=== PATIENT | female | born 1975 | race African-American/Black ===

== ENCOUNTER 2020-04-03 09:11 | Outpatient (CLI) | payer OTHER, SELFPAY ==
--- NOTE | ~2020-04-03 | MM_ITS ---
EXAMINATION: MM screening [facility] BI w pérez HISTORY: Screening mammogram TECHNIQUE: Craniocaudal and mediolateral oblique 3-D tomosynthesis images were obtained and synthetic 2-D images were generated. CAD analysis was submitted and interpreted. COMPARISON: 04/02/2019, 03/29/2018, 02/21/2017 BREAST PARENCHYMAL COMPOSITION: There are scattered areas of fibroglandular density. FINDINGS: There is no evidence of suspicious mass, calcification, or architectural distortion to sugg est malignancy in either breast. There has been no suspicious interval change. IMPRESSION: 1. No mammographic evidence of malignancy. 2. Recommend routine screening mammography in one year. BI-RADS Category 1: Negative Reviewed, dictated and finalized at location A. LOCATOR
== END 2020-04-03 09:12 | disposition home or self-care (01) ==
LOC: ANHIMG 09:13
PROVIDERS: PCP Family Medicine; Visit Provider Family Medicine
DX: Z12.31 Encounter for screening mammogram for malignant neoplasm of breast (principal)
CPT/HCPCS: 77063; 77067

== ENCOUNTER 2020-08-26 13:28 | Outpatient (CLI) | payer OTHER, SELFPAY | END 2020-08-26 13:29 | disposition home or self-care (01) | LOC: ANHCOVIDVC 13:29 | PROVIDERS: PCP Family Medicine | DX: Z23 Encounter for immunization (principal) | CPT/HCPCS: 0001A; 91300 ==

== ENCOUNTER 2020-09-16 13:23 | Outpatient (CLI) | payer OTHER, SELFPAY | END 2020-09-16 13:24 | disposition home or self-care (01) | LOC: ANHCOVIDVC 13:23 | PROVIDERS: PCP Family Medicine | DX: Z23 Encounter for immunization (principal) | CPT/HCPCS: 0002A; 91300 ==

== ENCOUNTER → 2020-12-04 12:39 | Outpatient (CLI) | payer OTHER, SELFPAY ==
--- NOTE | ~2020-12-04 | XR_ITS ---
XR wrist RT min 3V DATE: 12/04/2020 12:59 INDICATION: Medial wrist pain following occupational therapy 2 weeks ago TECHNIQUE: 4 views COMPARISON: None FINDINGS: No fracture or dislocation, periosteal reaction or bone destruction. No erosive change or c hondrocalcinosis. IMPRESSION: No significant abnormality Reviewed, dictated and finalized at location A. IMPRESSION: No significant abnormality
== END ==
PROVIDERS: PCP Family Medicine
DX: M25.531 Pain in right wrist (principal)
CPT/HCPCS: 73110

== ENCOUNTER → 2021-04-03 13:27 | Outpatient (CLI) | payer OTHER, SELFPAY ==
--- NOTE | ~2021-04-03 | XR_ITS ---
EXAMINATION: XR hip BI 2V w AP pelvis EXAM DATE: 04/03/2021 14:45 INDICATION: Chronic bilateral hip pain. TECHNIQUE: Each hip imaged independently (separate right and also left hip) crosstable lateral and ' frog-leg' and frontal projections for interpretation. Frontal projection pelvis. There is no prior study for comparison. FINDINGS: No radiographic evidence of hip avascular necrosis. Mild symmetric bilateral hip primary osteoarthritis. Calcifications in the pelvis are believed to be phleboliths. There are no osteoblasti c or osteolytic lesions identified. There are no acute fractures identified. No radiopaque foreign bel dies identified. IMPRESSION: Mild symmetric bilateral hip osteoarthritis. Reviewed, dictated and finalized at location A. C IRON WORKER
--- NOTE | ~2021-04-03 | XR_ITS ---
EXAMINATION: XR lumbar spine 2-3V EXAM DATE: 04/03/2021 14:45 INDICATION: Chronic low back pain x 3 months . TECHNIQUE: Lumber spine frontal, lateral, lateral L5-S1 projections for interpretation. There is no prior study for comparison. FINDINGS: Mild abdominal aortic arteriosclerosis. Mild upper and mid lumbar disc disease. Mild lumba r facet arthropathy. No spondylolysis. No lumbar scoliosis. Sacrum, sacroiliac joints, sacral arcuate lines are intact. Paraspinal soft tissue is unremarkable. IMPRESSION: Mild lumbar spondylosis. Reviewed, dictated and finalized at location A. BUILDER IMPRESSION: Mild lumbar spondylosis.
--- NOTE | ~2021-04-03 | XR_ITS ---
EXAMINATION: XR knee LT min 4V EXAM DATE: 04/03/2021 14:45 INDICATION: Left knee pain, chronic. No recent injury reported. TECHNIQUE: Left knee lateral, frontal AP, frontal PA tunnel, sunrise projections. There is no prior study for comparison. FINDINGS: No evidence osteochondral defect or joint body in the left knee joint. There is minimal l eft knee primary osteoarthritis. There are no acute fractures or dislocations identified. There is n o subcutaneous gas. The soft tissue is unremarkable. There are no radiopaque foreign bodies. No j oint effusion. IMPRESSION: Minimal left knee osteoarthritis. Reviewed, dictated and finalized at location A. NED SYRUP OPERATOR
--- NOTE | ~2021-04-03 | XR_ITS ---
EXAMINATION: XR knee RT min 4V EXAM DATE: 04/03/2021 14:45 INDICATION: Chronic right knee pain. TECHNIQUE: Right knee lateral, frontal AP, frontal PA tunnel, sunrise projections. Correlation is mad e to contralateral knee same date. FINDINGS: No evidence osteochondral defect or joint body in the right knee joint. There is minimal right knee primary osteoarthritis. There are no acute fractures or dislocations identified. There is no subcutaneous gas. The soft tissue is unremarkable. There are no radiopaque foreign bodies. No joint effusion. IMPRESSION: Minimal right knee osteoarthritis. Reviewed, dictated and finalized at location A. REPAIR TECHNICIAN
== END ==
PROVIDERS: PCP Family Medicine
DX: G89.29 Other chronic pain (principal); M17.0 Bilateral primary osteoarthritis of knee; M16.0 Bilateral primary osteoarthritis of hip; M47.896 Other spondylosis, lumbar region
CPT/HCPCS: 72100; 73521; 73564

== ENCOUNTER → 2021-11-22 13:55 | Outpatient (CLI) | payer OTHER, SELFPAY ==
--- NOTE | ~2021-11-22 | XR_ITS ---
XR knee LT min 4V DATE: 11/22/2021 14:32 INDICATION: Fall. Left knee pain TECHNIQUE: 4 views including crosstable lateral COMPARISON: 04/03/2021 left knee FINDINGS: There is slight periarticular spurring of the patella consistent with osteoarthritis. There is moderate loss of medial compartment joint space height. No fracture or dislocation or joint effusion. No radiopaque intra-articular loose body or, calcinosis . No periosteal reaction or bone destruction. IMPRESSION: Mild osteoarthritis at patellofemoral and medial compartments Reviewed, dictated and finalized at location A.
== END ==
PROVIDERS: PCP Physician Assistant; Visit Provider Physician Assistant
DX: M17.12 Unilateral primary osteoarthritis, left knee (principal)
CPT/HCPCS: 73564

== ENCOUNTER 2022-01-11 08:10 | Outpatient (CLI) | payer OTHER, SELFPAY ==
--- NOTE | ~2022-01-11 | MM_ITS ---
EXAMINATION: MM screening [facility] BI w pérez HISTORY: Screening mammogram TECHNIQUE: Craniocaudal and mediolateral oblique 3-D tomosynthesis images were obtained and synthetic 2-D images were generated. CAD analysis was submitted and interpreted. COMPARISON: 04/03/2020, 04/02/2019, 03/29/2018 BREAST PARENCHYMAL COMPOSITION: There are scattered areas of fibroglandular density. FINDINGS: There is no suspicious mass, calcification, or architectural distortion to suggest malignan cy in either breast. There has been no suspicious interval change. IMPRESSION: 1. No mammographic evidence of malignancy. 2. Recommend routine screening mammography in one year. BI-RADS Category 1: Negative Reviewed, dictated and finalized at location A.
== END 2022-01-11 08:11 | disposition home or self-care (01) ==
PROVIDERS: PCP Physician Assistant; Visit Provider Physician Assistant
DX: Z12.31 Encounter for screening mammogram for malignant neoplasm of breast (principal)
CPT/HCPCS: 77063; 77067

== ENCOUNTER 2022-04-01 11:18 | Outpatient (CLI) | payer OTHER, SELFPAY ==
--- NOTE | ~2022-04-01 | MMUS_ITS ---
EXAMINATION: MM diagnostic [facility] LT w pérez, US breast LT limited HISTORY: Nipple discharge. Mastitis. TECHNIQUE: Additional 3-D tomosynthesis images of the left breast were performed and synthetic 2-D im ages were generated. CAD analysis was submitted and interpreted. High resolution Limited left breast ultrasound was performed. COMPARISON: Comparison to multiple prior studies sequentially, with oldest reviewed study dated 07/28. BREAST PARENCHYMAL COMPOSITION: Breast composed of scattered areas of fibroglandular density FINDINGS: MAMMOGRAPHIC FINDINGS: There is focal asymmetry in the lower aspect of the left breast, best seen on ML and MLO views locate d inferiorly on medial lateral view. No suspicious calcifications or architectural distortion. ULTRASOUND: Limited left breast ultrasound: At 2:00, 2 cm from the nipple, there is an oval hypoechoic mass with circumscribed margins, posterior acoustic enhancement, parallel orientation and no internal vasculari ty measuring 5 mm maximum dimension. At 3:00, 5 cm from the nipple, there are multiple cysts, largest measuring 5 mm. At 3:00, 3 cm from the nipple, there is a complicated cyst measuring 5 mm with low-l evel internal echoes. At 4:00, 1 cm from the nipple, there is a hypoechoic mass with echogenic hilum measuring 7 x 5 x 3 mm, likely benign intramammary lymph node. IMPRESSION: 1. Probable benign right breast masses. 2. Recommend 6 month follow-up diagnostic right mammogram and ultrasound BI-RADS category 3, probably benign findings. Reviewed, dictated and finalized at location A. WATCHMAN IMPRESSION: 1. Probable benign right breast masses. 2. Recommend 6 month follow-up diagnostic right mammogram and ultrasound BI-RADS category 3, probably benign findings.
== END 2022-04-01 11:19 | disposition home or self-care (01) ==
LOC: ANHIMG 11:20
PROVIDERS: PCP Physician Assistant; Visit Provider Physician Assistant
DX: N64.52 Nipple discharge (principal); R92.8 Other abnormal and inconclusive findings on diagnostic imaging of breast
CPT/HCPCS: 76642; 77061; 77065; G0279

== ENCOUNTER 2022-10-10 00:15 | Inpatient (IN) | payer MEDICARE, OTHER, SELFPAY ==
[2022-10-10] VITALS (30 sets, daily range): BP systolic 69–137; BP diastolic 59–95; PULSE 81–100; RESP 12–33; TEMP 36.3–37; O2SAT 89–98; BMI 37.1
--- NOTE | 2022-10-10 | ECHO_ITS ---
Patient Info Name: Raysa Welch Minor Age: 47 years : 1975 Gender: Female Ht: 70 in Wt: 259 lbs BSA: 2.46 m2 HR: 79 bpm Technical Quality: Good Exam Date: 10/10/2022 10:45 AM Exam Location: [facility] Pulmonary Patient Status: Inpatient Admit Date: 10/10/2022 Staff Ordering Physician: Eduin Zamora MD Electric Mule Driver: Yohana Ramon RDCS Attending Provider: Keisha Li DO Referring Physician: Noah MERRILL; Exam Type: CA echo doppler color flow Study Info Indications I50.30 - Unspecified diastolic (congestive) heart failure Complete two-dimensional, color flow and Doppler transthoracic echocardiogram is performed. Summary 1. Complete two-dimensional, color flow and Doppler transthoracic echocardiogram is performed. 2. Left ventricular chamber dimension is normal. 3. Left ventricular systolic function is normal, estimated at 60-65%. 4. The left ventricular diastolic function is grade I diastolic dysfunction. 5. E/e' 10 is mildly elevated. 6. No pulmonary hypertension, estimated pulmonary arterial systolic pressure is 9 mmHg. Left Ventricle E/e' 10 is mildly elevated. Left ventricular chamber dimension is normal. Left ventricular systolic function is normal, estimated at 60-65%. The left ventricular diastolic function is grade I diastolic dysfunction. Right Ventricle Right ventricular systolic function is normal and with normal TAPSE 1.9 cm. Right ventricular chamber dimension is normal. Left Atria Left atrial chamber dimension is normal. Right Atria Right atrial chamber dimension is normal. Aortic Valve The aortic valve is trileaflet. There is no aortic valve stenosis. There is no aortic valve regurgitation. Pulmonic Valve There is no pulmonic regurgitation. Mitral Valve There is no mitral valve stenosis. There is no mitral valve regurgitation. Tricuspid Valve There is no tricuspid valve regurgitation. No pulmonary hypertension, estimated pulmonary arterial systolic pressure is 9 mmHg. Pericardium/Pleural There is no pericardial effusion. Inferior Vena Cava Normal inferior vena cava with >50% collapse upon inspiration consistent with normal right atrial pressure, 5 mmHg. Aorta The aortic root size at the sinus of Valsalva is normal. Left Ventricular Outflow Tract Name Value Normal LVOT Doppler LVOT Peak Gradient 5 mmHg LVOT Mean Gradient 3 mmHg LVOT VTI 25 cm LVOT VTI/AV VTI Ratio 1.0 Pulmonic Valve Name Value Normal PV Doppler PV Peak Gradient 5 mmHg Mitral Valve Name Value Normal MV Doppler MV Decel [place] 362 cm/s2 MV PHT 65 ms MV Area (PHT) 3.4 cm2 4.0-5.0
--- NOTE | ~2022-10-10 | XR_ITS ---
EXAMINATION: XR chest 2V DATE: 10/10/2022 01:19 INDICATION: Cough and shortness of breath. TECHNIQUE: Frontal and lateral views of the chest were obtained. COMPARISON: None. FINDINGS: There is a diffuse interstitial pattern in the lungs. No pleural effusion or pneumothorax. The heart size is normal. IMPRESSION: 1. Diffuse interstitial pattern in the lungs, consistent with pulmonary edema versus pneumonia. Reviewed, dictated and finalized at location A. IMPRESSION: 1. Diffuse interstitial pattern in the lungs, consistent with pulmonary edema v ersus pneumonia.
--- NOTE | 2022-10-10 00:40 | ED.GENADULT ---
HPI - General Adult General Chief complaint: Shortness of Breath/Dyspnea Stated complaint: tight cough feels sob Time Seen by Provider: 10/10/22 00:26 History of Present Illness HPI narrative: 35-kwtb-plv-year-old female presented to the emergency department for evaluation of cough and congestion has been ongoing for the last week. Patient denies any previous history of PE DVT or COPD. Patient states she is a smoker. Related Data Home Medications Medication Instructions Recorded Confirmed amlodipine 10 mg tablet 10 mg PO DAILY 10/10/22 10/10/22 atorvastatin 10 mg tablet 20 mg PO HS 10/10/22 10/10/22 erenumab-aooe 70 mg/mL 70 mg subcut MONTHLY 10/10/22 10/10/22 subcutaneous auto-injector (Aimovig Autoinjector) ergocalciferol (vitamin D2) 1,250 1,250 mcg PO WEEKLY 10/10/22 10/10/22 mcg (50,000 unit) capsule gabapentin 300 mg capsule 300 mg PO BID 10/10/22 10/10/22 hydroxyzine HCl 50 mg tablet 50 mg PO TID 10/10/22 10/10/22 losartan 100 mg tablet 100 mg PO DAILY 10/10/22 10/10/22 meloxicam 15 mg tablet 15 mg PO DAILY 10/10/22 10/10/22 propranolol 20 mg tablet 20 mg PO TID 10/10/22 10/10/22 sertraline 100 mg tablet 150 mg PO DAILY 10/10/22 10/10/22 trazodone 150 mg tablet 150 mg PO HS 10/10/22 10/10/22 Allergies Allergy/AdvReac Type Severity Reaction Status Date / Time No Known Allergies Allergy Verified 10/10/22 05:16 Review of Systems Review of Systems: All systems reviewed & are unremarkable except as noted in HPI and below PMFSH Social History Social History Smoking packs per day: 0.2 Smoking cigarettes per day: 4.0 Smoking status: Current every day smoker Tobacco type: cigarettes Second hand tobacco smoke exposure: Yes Smoking end date: 05/15/94 Alcohol intake: former Drinks per week: 70 Substance use: never Lack of Transportation: No Lack of Food: Never True Current Housing: I Have Housing Concerned About Future Housing: No Difficulty Paying Gas/Electric Bills: No Difficulty Paying for Meds: No Currently Unemployed: No Education: High School Diploma/GED Difficulty w/ Childcare or Family Care: No Spiritual care concerns: No Exam Narrative: APPEARANCE: Well appearing, no pain, no distress, well-nourished. HEAD: normocephalic, atraumatic. EYES: PERRLA/EOMI, conjunctivae clear. NOSE: Normal no drainage NECK: Supple. No adenopathy, no masses. RESPIRATORY: Wheeze bilaterally CARDIOVASCULAR: Regular rate and rhythm without murmurs rubs or gallops. ABDOMINAL: Soft, nontender, nondistended, normal bowel sounds MUSCULOSKELETAL: Moves all extremities. Strength/ROM intact, No edema, No calf tenderness. NEURO: Alert. Cranial nerves II through XII intact. Grossly intact SKIN: Warm, dry. Normal Color Course Course Emergency Course: 47-year-old female presenting to the ED for evaluation of productive cough and shortness of breath. Patient was hypoxic when ambulating back to the room patient's oxygenation did improve on 2 L of oxygen by nasal cannula. Chest x-ray was concerning for pneumonia. Patient did have a leukocytosis of 15. Patient was started on IV antibiotics in the emergency department. Case was discussed with the hospitalist and patient was accepted for observation. Patient was updated on the diagnosis, treatment plan and plan for admission. All questions and concerns were addressed. Vital Signs Vital signs: Vital Signs Temperature 97.9 F 10/10/22 00:29 Pulse Rate 90 10/10/22 00:29 Respiratory Rate 22 H 10/10/22 00:29 Blood Pressure 137/75 10/10/22 00:29 Pulse Oximetry 95 10/10/22 00:29 Oxygen Delivery Nasal Cannula 10/10/22 00:29 Oxygen Flow Rate 2 10/10/22 00:29 Temperature 98.5 F 10/10/22 05:15 Pulse Rate 82 10/10/22 05:15 Respiratory Rate 20 10/10/22 05:15 Blood Pressure 118/72 10/10/22 05:15 Pulse Oximetry 94 10/10/22 06:45 Oxygen Delivery Nasal Cannula 10/10/22 06:45 Oxygen Flow Rate 2 0
[2022-10-10] MEDS: LEVALBUTEROL NEB 1.25 MG/3 ML 2.5 MG INHALATION (00:47)
[2022-10-10 01:43] LABS: Influenza A QL RT-PCR Negative (Negative); Influenza B QL RT-PCR Negative (Negative); RSV RNA, RT-PCR Negative (Negative); SARS-CoV-2 RNA PCR Negative (Negative)
[2022-10-10] MEDS: AZITHROMYCIN 500 MG/NS 250 ML 500 MG/250 ML BAG 250 MG IVPB (03:02)
[2022-10-10 03:14] LABS: Alanine Aminotransferase 27 U/L (6-35); Albumin Level 3.7 g/dL (3.5-5.1); Alkaline Phosphatase 94 U/L (38-126); Anion Gap 6 mmol/L (8-16); Aspartate Amino Transferase 38 U/L (14-36); Bilirubin,Total 0.7 mg/dL (0.2-1.3); Blood Urea Nitrogen 14 mg/dL (7-17); Calcium 8.9 mg/dL (8.4-10.2); Carbon Dioxide 32 mmol/L (22-30); Chloride 98 mmol/L (98-107); Estimated CRCL calculation 96 ml/min; Estimated Glomerular Filt Rate > 60; Glucose 129 mg/dL (65-110); Potassium 3.2 mmol/L (3.4-5.0); Sodium 136 mmol/L (137-145)
[2022-10-10 03:22] LABS: Basophils Absolute Auto 0.1 K/mm3 (0.0-0.1); Basophils Percent Auto 0.6 % (0.2-1.2); Eosinophils Absolute Auto 0.3 K/mm3 (0-0.3); Eosinophils Percent Auto 1.8 % (0-4.4); Hematocrit 39.8 % (37.0-47.0); Hemoglobin 13.5 g/dL (12.0-15.0); Immature Granulocyte Absolute 0.27 K/mm3 (0.00-0.031); Immature Granulocyte Percent A 1.8 % (0-0.5); Lymphocytes Absolute Auto 3.41 K/mm3 (0.9-3.2); Lymphocytes Percent Auto 22.8 % (18.3-44.2); Mean Corpuscular HGB Conc 33.9 g/dl (32-36); Mean Corpuscular Hemoglobin 30.9 pg (26-34); Mean Corpuscular Volume 91.1 fl (80-100); Mean Platelet Volume 10.5 fl (7.4-10.4); Monocytes Absolute Auto 1.1 K/mm3 (0.1-0.6); Monocytes Percent Auto 7.3 % (2.6-8.5); Neutrophils Absolute Auto 9.8 K/mm3 (1.3-6.7); Neutrophils Percent Auto 65.7 % (45.5-73.1); Platelet Count Result 328 k/mm3 (150-375); Red Blood Count 4.37 M/mm3 (4.2-5.4); Red Cell Distribution Width 12.6 % (11.5-14.5)
[2022-10-10] MEDS: POTASSIUM CHLORIDE 20 MEQ PACKET (FOR LIQUID) 40 MEQ PO (03:36)
--- NOTE | 2022-10-10 04:24 | ECG_ITS ---
Measurements Intervals [place] Rate: 89 P: 8 [place]: 159 QRS: 27 QRSD: 85 T: 39 QT: 386 QTc: 471 Interpretive Statements SINUS RHYTHM NONSPECIFIC T-WAVE ABNORMALITY- ANTERIOR LEADS BORDERLINE ECG NO PREVIOUS ECG AVAILABLE FOR COMPARISON Electronically Signed On 10-10-2022 21:13:50 CDT by Deyvi Alonzo D.O.
--- NOTE | 2022-10-10 05:14 | PC.NURSE ---
Patient arrived on 3 Med-Surg at 05:10
[2022-10-10] MEDS: LEVALBUTEROL NEB 1.25 MG/3 ML 0.63 MG INHALATION ×3 (07:20→19:47)
[2022-10-10 08:56] LABS: Magnesium 2.4 mg/dL (1.6-2.3)
[2022-10-10 09:05] LABS: NT Pro B Type Natriuretic Pept 110 pg/mL (19.9-100)
[2022-10-10] MEDS: FUROSEMIDE INJ 40 MG/4 ML VIAL IV PUSH (09:43)
--- NOTE | 2022-10-10 11:33 | PM.IMHP ---
H&P: HPI History of Present Illness Date/Time: 10/10/22 11:33 Chief Complaint: Cough and shortness of breath Narrative: 51-pkxa-stk-year-old female who is a current smoker who presented to the emergency department for evaluation of cough and congestion ongoing for the last week.? Patient also reports some chills but no fever, no chest pain, no abdominal pain no change in bladder or bowel habits. Patient denies any previous history of PE DVT or COPD.? Chest x-ray was reported as interstitial infiltrates versus pulmonary edema Review of Systems Review of Systems: All systems reviewed & are unremarkable except as noted in HPI and below PMFSH Social History Social History Smoking packs per day: 0.2 Smoking cigarettes per day: 4.0 Smoking status: Current every day smoker Tobacco type: cigarettes Second hand tobacco smoke exposure: Yes Smoking end date: 05/15/94 Alcohol intake: former Drinks per week: 70 Substance use: never Lack of Transportation: No Lack of Food: Never True Current Housing: I Have Housing Concerned About Future Housing: No Difficulty Paying Gas/Electric Bills: No Difficulty Paying for Meds: No Currently Unemployed: No Education: High School Diploma/GED Difficulty w/ Childcare or Family Care: No Spiritual care concerns: No Meds Home Medications and Allergies Home Medications Medication Instructions Recorded Confirmed Type amlodipine 10 mg tablet 10 mg PO DAILY 10/10/22 10/10/22 History atorvastatin 10 mg tablet 20 mg PO HS 10/10/22 10/10/22 History erenumab-aooe 70 mg/mL 70 mg subcut MONTHLY 10/10/22 10/10/22 History subcutaneous auto-injector (Aimovig Autoinjector) ergocalciferol (vitamin D2) 1,250 1,250 mcg PO WEEKLY 10/10/22 10/10/22 History mcg (50,000 unit) capsule gabapentin 300 mg capsule 300 mg PO BID 10/10/22 10/10/22 History hydroxyzine HCl 50 mg tablet 50 mg PO TID 10/10/22 10/10/22 History losartan 100 mg tablet 100 mg PO DAILY 10/10/22 10/10/22 History meloxicam 15 mg tablet 15 mg PO DAILY 10/10/22 10/10/22 History propranolol 20 mg tablet 20 mg PO TID 10/10/22 10/10/22 History sertraline 100 mg tablet 150 mg PO DAILY 10/10/22 10/10/22 History trazodone 150 mg tablet 150 mg PO HS 10/10/22 10/10/22 History Allergies Allergy/AdvReac Type Severity Reaction Status Date / Time No Known Allergies Allergy Verified 10/10/22 05:16 Vital Signs Vital Signs - 24 hr 10/10/22 00:29 10/10/22 00:29 10/10/22 00:46 Temperature 97.9 F Pulse Rate 90 Respiratory Rate 22 H Blood Pressure 137/75 Pulse Oximetry 95 89 L 97 Oxygen Delivery Nasal Cannula Room Air Nasal Cannula Oxygen Flow Rate 2 2 10/10/22 00:48 10/10/22 01:01 10/10/22 02:11 Temperature Pulse Rate 84 83 Respiratory Rate 12 33 H Blood Pressure 69/59 L 123/95 H Pulse Oximetry Oxygen Delivery Oxygen Flow Rate 10/10/22 02:51 10/10/22 03:00 10/10/22 03:02 Temperature Pulse Rate 88 81 84 Respiratory Rate 25 H 23 H 29 H Blood Pressure 130/79 Pulse Oximetry 94 94 93 Oxygen Delivery Oxygen Flow Rate 10/10/22 03:15 10/10/22 03:30 10/10/22 03:32 Temperature Pulse Rate 85 85 84 Respiratory Rate 28 H 24 H 27 H Blood Pressure 126/77 Pulse Oximetry 93 95 94 Oxygen Delivery Oxygen Flow Rate 10/10/22 03:45 10/10/22 04:00 10/10/22 04:01 Temperature Pulse Rate 87 85 85 Respiratory Rate 29 H 25 H 24 H Blood Pressure 125/93 H Pulse Oximetry 93 95 94 Oxygen Delivery Oxygen Flow Rate 10/10/22 04:15 10/10/22 04:31 10/10/22 05:15 Temperature 98.5 F Pulse Rate 93 91 82 Respiratory Rate 22 H 23 H 20 Blood Pressure 118/75 118/72 Pulse Oximetry 92 94 94 Oxygen Delivery Oxygen Flow Rate 10/10/22 06:45 10/10/22 07:20 10/10/22 07:20 Temperature Pulse Rate 83 83 Respiratory Rate 18 18 Blood Pressure Pulse Oximetry 94 95 Oxygen Deli
[2022-10-10] MEDS: hydrOXYzine HCL 25 MG TABLET 50 MG PO ×2 (12:55→17:58)
[2022-10-10] MEDS: traZODone HCL 50 MG TABLET 150 MG PO (21:07)
[2022-10-10] MEDS: ATORVASTATIN 10 MG TABLET 20 MG PO (21:07)
[2022-10-11] VITALS (11 sets, daily range): BP systolic 108–136; BP diastolic 73–85; PULSE 85–111; RESP 18–20; TEMP 36–36.9; O2SAT 92–98
[2022-10-11] MEDS: LEVALBUTEROL NEB 1.25 MG/3 ML 0.63 MG INHALATION ×4 (01:09→20:05)
[2022-10-11] MEDS: AZITHROMYCIN 500 MG/NS 250 ML 500 MG/250 ML BAG 250 MG IVPB (03:28)
[2022-10-11] MEDS: amLODIPine BESYLATE 5 MG TABLET 10 MG PO (09:35)
[2022-10-11] MEDS: hydrOXYzine HCL 25 MG TABLET 50 MG PO ×3 (09:35→17:32)
[2022-10-11] MEDS: FUROSEMIDE 20 MG TABLET PO (09:35)
[2022-10-11] MEDS: LOSARTAN POTASSIUM 100 MG TABLET PO (09:35)
[2022-10-11] MEDS: SERTRALINE HCL 50 MG TABLET 150 MG PO (09:35)
--- NOTE | 2022-10-11 10:55 | PM.IMPN ---
Progress Note: A&P Assessment and Plan (1) Pneumonia: Code(s): J18.9 - Pneumonia, unspecified organism Status: Acute Assessment and Plan: Continue IV Rocephin azithromycin. Blood cultures growing Gram-positive cocci in clusters (2) Hypoxia: Code(s): R09.02 - Hypoxemia Status: Acute Assessment and Plan: Likely secondary to pneumonia versus mild pulmonary edema. Echo shows grade 1 diastolic dysfunction. Continue Lasix 20 mg p.o. daily (3) Bacteremia: Code(s): R78.81 - Bacteremia Status: Acute Assessment and Plan: Blood cultures growing Gram-positive cocci in clusters. Sensitivity and ID pending. Continue current antibiotics (4) HTN (hypertension): Code(s): I10 - Essential (primary) hypertension Status: Acute Assessment and Plan: Continue home medications Subjective Date/time seen: 10/11/22 10:55 Interval history: Doing better Review of Systems Review of Systems: All systems reviewed & are unremarkable except as noted in HPI and below Exam Narrative: APPEARANCE: Well appearing, no pain, no distress, well-nourished. HEAD: normocephalic, atraumatic. EYES: PERRLA/EOMI, conjunctivae clear. NOSE: Normal no drainage NECK: Supple. No adenopathy, no masses. RESPIRATORY: Wheeze and crackles bilaterally CARDIOVASCULAR: Regular rate and rhythm without murmurs rubs or gallops. ABDOMINAL: Soft, nontender, nondistended, normal bowel sounds MUSCULOSKELETAL: Moves all extremities. Strength/ROM intact, No edema, No calf tenderness. NEURO: Alert. Cranial nerves II through XII intact. Grossly intact SKIN: Warm, dry. Normal Color Objective Data Vital Signs Vital Signs: Vital Signs - 24 hr 10/10/22 13:05 10/10/22 13:15 10/10/22 14:00 Temperature 97.3 F L Pulse Rate 87 86 94 Respiratory Rate 18 18 14 Blood Pressure 108/77 Pulse Oximetry 94 Oxygen Delivery Oxygen Flow Rate 10/10/22 17:55 10/10/22 17:57 10/10/22 18:41 Temperature Pulse Rate Respiratory Rate Blood Pressure Pulse Oximetry 98 94 92 Oxygen Delivery Nasal Cannula Room Air Room Air Oxygen Flow Rate 1 10/10/22 19:47 10/10/22 19:48 10/10/22 20:00 Temperature Pulse Rate 81 84 Respiratory Rate 18 18 Blood Pressure Pulse Oximetry 93 Oxygen Delivery Room Air Oxygen Flow Rate 10/10/22 21:30 10/11/22 01:10 10/11/22 01:24 Temperature 98.6 F Pulse Rate 100 85 88 Respiratory Rate 18 18 18 Blood Pressure 123/95 H Pulse Oximetry 95 Oxygen Delivery Oxygen Flow Rate 10/11/22 06:00 10/11/22 07:00 10/11/22 07:00 Temperature 98.5 F Pulse Rate 99 86 86 Respiratory Rate 18 18 18 Blood Pressure 136/85 Pulse Oximetry 95 92 Oxygen Delivery Room Air Oxygen Flow Rate 10/11/22 07:09 10/11/22 07:30 Temperature Pulse Rate 85 Respiratory Rate 18 Blood Pressure Pulse Oximetry Oxygen Delivery Room Air Oxygen Flow Rate Intake/Output Intake/Output: Intake & Output 10/08/22 10/09/22 10/10/22 10/11/22 23:59 23:59 23:59 23:59 Intake Total 2059 670 / 670 Balance 2059 670 / 670 Meds/Results Medications: Active Medications Generic Name Dose Route Start Last Admin Trade Name Freq PRN Reason Stop Dose Admin Amlodipine Besylate 10 mg 10/11/22 09:00 10/11/22 09:35 Amlodipine Besylate 5 Mg Tablet PO 10 mg DAILY PASQUALE Administration Atorvastatin Calcium 20 mg 10/10/22 21:00 10/10/22 21:07 Atorvastatin 10 Mg Tablet PO 20 mg HS PASQUALE Administration Furosemide 20 mg 10/11/22 09:00 10/11/22 09:35 Furosemide 20 Mg Tablet PO 20 mg DAILY PASQUALE Administration Hydroxyzine HCl 50 mg 10/10/22 13:00 10/11/22 09:35 Hydroxyzine Hcl 25 Mg Tablet PO 50 mg TID PASQUALE Administration Ceftriaxone Sodium 1 gm in 50 mls @ 100 mls/hr 10/10/22 23:00 10/10/22 23:50 Rocephin 1 Gm/Ns 50 Ml IVPB 100 mls/hr Q24H PASQUALE Administration Azithrom
[2022-10-11] MEDS: traZODone HCL 50 MG TABLET 150 MG PO (20:48)
[2022-10-11] MEDS: ATORVASTATIN 10 MG TABLET 20 MG PO (20:48)
[2022-10-12] VITALS (13 sets, daily range): BP systolic 112–131; BP diastolic 67–80; PULSE 92–104; RESP 16–24; TEMP 35.8–36.6; O2SAT 94–97
[2022-10-12] MEDS: LEVALBUTEROL NEB 1.25 MG/3 ML 0.63 MG INHALATION ×4 (02:04→19:54)
[2022-10-12] MEDS: AZITHROMYCIN 500 MG/NS 250 ML 500 MG/250 ML BAG 250 MG IVPB (03:20)
[2022-10-12 08:29] LABS: Anion Gap 3 mmol/L (8-16); Blood Urea Nitrogen 9 mg/dL (7-17); Calcium 8.8 mg/dL (8.4-10.2); Carbon Dioxide 35 mmol/L (22-30); Chloride 100 mmol/L (98-107); Estimated CRCL calculation 134 ml/min; Estimated Glomerular Filt Rate > 60; Glucose 109 mg/dL (65-110); Potassium 3.5 mmol/L (3.4-5.0); Sodium 138 mmol/L (137-145)
[2022-10-12] MEDS: SERTRALINE HCL 50 MG TABLET 150 MG PO (09:01)
[2022-10-12] MEDS: LOSARTAN POTASSIUM 100 MG TABLET PO (09:01)
[2022-10-12] MEDS: amLODIPine BESYLATE 5 MG TABLET 10 MG PO (09:02)
[2022-10-12] MEDS: FUROSEMIDE 20 MG TABLET PO (09:02)
[2022-10-12] MEDS: VANCOMYCIN 1,250 MG/NS 250 ML 1,250 MG/250 ML BAG 166.67 MG IVPB ×2 (09:02→10:32)
[2022-10-12] MEDS: hydrOXYzine HCL 25 MG TABLET 50 MG PO ×3 (09:04→17:49)
--- NOTE | 2022-10-12 11:32 | PM.IMPN ---
Progress Note: A&P Assessment and Plan (1) Pneumonia: Code(s): J18.9 - Pneumonia, unspecified organism Status: Acute Assessment and Plan: Continue IV Rocephin azithromycin. Blood cultures growing Gram-positive cocci in clusters (2) Hypoxia: Code(s): R09.02 - Hypoxemia Status: Acute Assessment and Plan: Likely secondary to pneumonia versus mild pulmonary edema. Echo shows grade 1 diastolic dysfunction. Continue Lasix 20 mg p.o. daily (3) Bacteremia: Code(s): R78.81 - Bacteremia Status: Acute Assessment and Plan: Blood cultures growing Gram-positive cocci in clusters. Sensitivity and ID pending. Continue current antibiotics (4) HTN (hypertension): Code(s): I10 - Essential (primary) hypertension Status: Acute Assessment and Plan: Continue home medications Subjective Date/time seen: 10/12/22 11:32 Interval history: no New complaints Exam Narrative: APPEARANCE: Well appearing, no pain, no distress, well-nourished. HEAD: normocephalic, atraumatic. EYES: PERRLA/EOMI, conjunctivae clear. NOSE: Normal no drainage NECK: Supple. No adenopathy, no masses. RESPIRATORY: Wheeze and crackles bilaterally CARDIOVASCULAR: Regular rate and rhythm without murmurs rubs or gallops. ABDOMINAL: Soft, nontender, nondistended, normal bowel sounds MUSCULOSKELETAL: Moves all extremities. Strength/ROM intact, No edema, No calf tenderness. NEURO: Alert. Cranial nerves II through XII intact. Grossly intact SKIN: Warm, dry. Normal Color Objective Data Vital Signs Vital Signs: Vital Signs - 24 hr 10/11/22 13:00 10/11/22 13:10 10/11/22 15:35 Temperature 97.8 F Pulse Rate 103 H 90 105 H Respiratory Rate 18 18 20 Blood Pressure 108/73 Pulse Oximetry 98 Oxygen Delivery 10/11/22 20:00 10/11/22 20:00 10/11/22 20:08 Temperature Pulse Rate 110 H 110 H 111 H Respiratory Rate 18 18 Blood Pressure Pulse Oximetry 96 Oxygen Delivery Room Air 10/11/22 21:33 10/12/22 02:00 10/12/22 02:09 Temperature 96.8 F L Pulse Rate 97 104 H 98 Respiratory Rate 20 18 18 Blood Pressure 116/76 Pulse Oximetry 94 Oxygen Delivery 10/12/22 06:00 10/12/22 07:53 10/12/22 07:54 Temperature 96.4 F L Pulse Rate 97 93 Respiratory Rate 16 18 Blood Pressure 131/67 Pulse Oximetry 95 94 Oxygen Delivery Room Air 10/12/22 07:59 10/12/22 08:00 Temperature Pulse Rate 97 Respiratory Rate 18 Blood Pressure Pulse Oximetry Oxygen Delivery Room Air Intake/Output Intake/Output: Intake & Output 10/09/22 10/10/22 10/11/22 10/12/22 23:59 23:59 23:59 23:59 Intake Total 2060 1206 230 Balance 2060 1206 230 Meds/Results Medications: Active Medications Generic Name Dose Route Start Last Admin Trade Name Freq PRN Reason Stop Dose Admin Amlodipine Besylate 10 mg 10/11/22 09:00 10/12/22 09:02 Amlodipine Besylate 5 Mg Tablet PO 10 mg DAILY PASQUALE Administration Atorvastatin Calcium 20 mg 10/10/22 21:00 10/11/22 20:48 Atorvastatin 10 Mg Tablet PO 20 mg HS PASQUALE Administration Furosemide 20 mg 10/11/22 09:00 10/12/22 09:02 Furosemide 20 Mg Tablet PO 20 mg DAILY PASQUALE Administration Hydroxyzine HCl 50 mg 10/10/22 13:00 10/12/22 09:04 Hydroxyzine Hcl 25 Mg Tablet PO 50 mg TID PASQUALE Administration Ceftriaxone Sodium 1 gm in 50 mls @ 100 mls/hr 10/10/22 23:00 10/12/22 00:04 Rocephin 1 Gm/Ns 50 Ml IVPB Infused Q24H PASQUALE Infusion Azithromycin 500 mg in 250 mls @ 250 mls/hr 10/11/22 03:00 10/12/22 03:20 Zithromax IVPB 250 mls/hr Q24H PASQUALE Administration Vancomycin HCl 1,500 mg in 500 mls @ 250 mls/hr 10/12/22 21:00 Vancomycin 1,500 Mg/D5w 500 Ml IVPB Q12H PASQUALE Vancomycin HCl 1,250 mg in 250 mls @ 166.667 mls/hr 10/12/22 10:30 10/12/22 10:32 Vancomycin 1,250 Mg/Ns 250 Ml IVPB 10/12/22 11:59 166.67 mls/hr ONCE ONE Administration Levalbu
[2022-10-12] MEDS: traZODone HCL 50 MG TABLET 150 MG PO (20:07)
[2022-10-12] MEDS: ATORVASTATIN 10 MG TABLET 20 MG PO (20:07)
[2022-10-12] MEDS: AMOXICILLIN/CLAVULANATE K 875-125 MG TAB 1 TABLET PO (20:07)
[2022-10-13 02:13] VITALS: PULSE 92; RESP 18
[2022-10-13] MEDS: LEVALBUTEROL NEB 1.25 MG/3 ML 0.63 MG INHALATION ×2 (02:13→08:13)
[2022-10-13 06:00] VITALS: BP 136/90; PULSE 96; RESP 16; TEMP 35.5; O2SAT 96
[2022-10-13 08:00] VITALS: PULSE 104; RESP 18; O2SAT 95
[2022-10-13 08:14] VITALS: PULSE 98; RESP 18; O2SAT 95
[2022-10-13 08:24] VITALS: PULSE 104; RESP 18
[2022-10-13] MEDS: LOSARTAN POTASSIUM 100 MG TABLET PO (09:30)
[2022-10-13] MEDS: FUROSEMIDE 20 MG TABLET PO (09:30)
[2022-10-13] MEDS: SERTRALINE HCL 50 MG TABLET 150 MG PO (09:30)
[2022-10-13] MEDS: amLODIPine BESYLATE 5 MG TABLET 10 MG PO (09:30)
[2022-10-13] MEDS: AMOXICILLIN/CLAVULANATE K 875-125 MG TAB 1 TABLET PO (09:30)
[2022-10-13] MEDS: hydrOXYzine HCL 25 MG TABLET 50 MG PO (09:32)
--- NOTE | 2022-10-13 11:24 | PM.DS ---
DS: Admitting Diagnosis Discharge Date October 13, 2022 Admitting Diagnosis Pneumonia DS: Discharge Diagnosis Discharge Diagnosis (1) Pneumonia: Code(s): J18.9 - Pneumonia, unspecified organism Status: Acute Assessment and Plan: Continue IV Rocephin azithromycin. Blood cultures growing Gram-positive cocci in clusters (2) Hypoxia: Code(s): R09.02 - Hypoxemia Status: Acute Assessment and Plan: Likely secondary to pneumonia versus mild pulmonary edema. Echo shows grade 1 diastolic dysfunction. Continue Lasix 20 mg p.o. daily (3) Bacteremia: Code(s): R78.81 - Bacteremia Status: Acute Assessment and Plan: Blood cultures growing Gram-positive cocci in clusters. Sensitivity and ID pending. Continue current antibiotics (4) HTN (hypertension): Code(s): I10 - Essential (primary) hypertension Status: Acute Assessment and Plan: Continue home medications DS: Summary Hospital Course Hospital Course: Admitted for pneumonia will be discharged on antibiotics. Respiratory status is at baseline. Time Spent with Patient Time attestation: Total time spent providing and/or coordinating discharge services: Exam Narrative: APPEARANCE: Well appearing, no pain, no distress, well-nourished. HEAD: normocephalic, atraumatic. EYES: PERRLA/EOMI, conjunctivae clear. NOSE: Normal no drainage NECK: Supple. No adenopathy, no masses. RESPIRATORY: Wheeze and crackles bilaterally CARDIOVASCULAR: Regular rate and rhythm without murmurs rubs or gallops. ABDOMINAL: Soft, nontender, nondistended, normal bowel sounds MUSCULOSKELETAL: Moves all extremities. Strength/ROM intact, No edema, No calf tenderness. NEURO: Alert. Cranial nerves II through XII intact. Grossly intact SKIN: Warm, dry. Normal Color DS: Data Data Completed and Pending Labs on day of discharge: Preliminary micro results at discharge 10/10/22 04:41 Blood Culture - Preliminary Blood Discharge Plan Discharge Attending physician on discharge: Jeff Monterroso Discharging Clinician: Jeff Monterroso Patient Disposition: Home, Self-Care Activity: as tolerated Diet: as tolerated Patient Instructions: Antibiotic Form, How to Stop Smoking (DC), Community Acquired Pneumonia (DC) Stand Alone Forms: General Discharge Information Follow-up/Referrals: Major,KADEEM Winchester [Primary Care Provider] - Discharge Medications: New azithromycin [Zithromax] 250 mg Tablet 500 mg PO Q24H 3 Days Qty: 6 0RF Continued atorvastatin 10 mg tablet 20 mg PO HS meloxicam 15 mg tablet 15 mg PO DAILY sertraline 100 mg tablet 150 mg PO DAILY hydroxyzine HCl 50 mg tablet 50 mg PO TID amlodipine 10 mg tablet 10 mg PO DAILY trazodone 150 mg tablet 150 mg PO HS gabapentin 300 mg capsule 300 mg PO BID ergocalciferol (vitamin D2) 1,250 mcg (50,000 unit) capsule 1,250 mcg PO WEEKLY propranolol 20 mg tablet 20 mg PO TID losartan 100 mg tablet 100 mg PO DAILY Aimovig Autoinjector 70 mg/mL auto-injector 70 mg SUBCUT MONTHLY Date of admission: 10/11/22 10:09 Primary Care Provider: Lenore*Annabella Admitting Provider: Keisha Li Attending physician on admission: Keisha Li Condition: Stable
== END 2022-10-13 12:24 | disposition home or self-care (01) | DRG 194 ==
LOC: ANHED 04:34 → ANH3MEDSUR 04:40
PROVIDERS: Hospitalist; Admitting Provider Internal Medicine; Emergency Provider Emergency Medicine; PCP Physician Assistant; Visit Provider Chiropractor
DX: J18.9 Pneumonia, unspecified organism (principal); R78.81 Bacteremia; R09.02 Hypoxemia; I10 Essential (primary) hypertension; F17.210 Nicotine dependence, cigarettes, uncomplicated; Z79.899 Other long term (current) drug therapy; Z20.822 Contact with and (suspected) exposure to COVID-19
CPT/HCPCS: 36415; 71046; 80048; 80053; 83735; 83880; 85025; 87040; 87077; 87081; 87186; 87637; 93005; 93306; 94640; 96365; 96367; 96375; 99285; A9270; G0378; G0379; J0456; J0696; J1940; J3370

== ENCOUNTER 2023-04-14 16:14 | Emergency (ER) | payer MEDICARE, MEDICAID, SELFPAY ==
--- NOTE | ~2023-04-14 | CT_ITS ---
EXAMINATION: CT abd pelvis lumbar w con DATE: 04/14/2023 20:37 INDICATION: Low back pain TECHNIQUE: Computed tomography (CT) of the abdomen, pelvis and lumbar spine was performed with 100 mL Omnipaque-350 intravenous contrast. Automated exposure control and iterative reconstruction techniqu e were employed. The dose-length product was 1526.04 mGy-cm. COMPARISON: None FINDINGS: Abdomen and pelvis: Lung bases are clear. Heart size is normal. No pericardial or pleural effusion. Small amount of focal hepatic steatosis at the ligamentum teres. Gallbladder, spleen, pancreas, bilateral adrenal glands a nd kidneys are normal. No evident urolithiasis or hydronephrosis. There are multiple phleboliths yeyo g the bilateral gonadal veins. Bladder is normal. The uterus is not identified and has likely been tee rgically resected. 1.5 cm peripherally enhancing corpus luteum cyst in the left ovary. Minimal amount of likely physiologic free fluid in the deep pelvis. There are few diverticula along the descending and sigmoid colon without adjacent from trace stranding to suggest diverticulitis. Small bowel and ap pendix are normal. No pathologically enlarged abdominal or pelvic lymphadenopathy. Small fat-containi ng umbilical hernia. Lumbar spine: Alignment is normal. Vertebral body and disc heights are normal. There is some dystrophic calcificati on centrally within the L3-L4 disc. There are disc bulges resulting in mild central canal stenosis at L3-L4 and L4-L5. Mild disc bulge without central canal stenosis at L5-S1. There is moderate right-si ded and mild left-sided facet osteoarthritis at L4-L5 and L5-S1. Mild facet osteoarthritis in the mor e cephalad lumbar spine. There is mild bilateral neural foraminal stenosis at L3-L4 through L5-S1. IMPRESSION: 1. 1.5 cm corpus luteum cyst at the left ovary and minimal amount of likely physiologic free fluid in the deep pelvis. No other acute intra-abdominal/pelvic process. 2. Mild lumbar spondylosis. Reviewed, dictated and finalized at location [facility] IMPRESSION: 1. 1.5 cm corpus luteum cyst at the left ovary and minimal amount of likely phy siologic free fluid in the deep pelvis. No other acute intra-abdominal/pelvic p rocess. 2. Mild lumbar spondylosis.
[2023-04-14 16:15] VITALS: BP 163/92; PULSE 88; RESP 18; TEMP 36.5; O2SAT 100
[2023-04-14 18:58] VITALS: BP 171/75; PULSE 80; RESP 16; O2SAT 99
--- NOTE | 2023-04-14 19:27 | ED.GENADULT ---
HPI - General Adult General Chief complaint: Back Pain/Injury Stated complaint: NVD and back pain Time Seen by Provider: 04/14/23 19:07 Source: patient Mode of arrival: ambulatory Limitations: no limitations History of Present Illness HPI narrative: This is a 47-year-old female with PMH of spinal stenosis, HTN who presents to the ED with chief complaint acute on chronic low back pain. Reports that she started to have vomiting and loose stools yesterday evening. Reports she had an episode bowel incontinence while asleep last night.. She called her physician's office who referred her to the ER to rule out cauda equina. Patient reports the pain is worse in the left lower back. She has bilateral paresthesias in the feet but these have been chronic for several months. Denies of leg weakness, difficulty with ambulation, urinary retention or any further episodes of bowel incontinence. Denies saddle anesthesia, fevers, chills. Related Data Home Medications Medication Instructions Recorded Confirmed amlodipine 10 mg tablet 10 mg PO DAILY 10/10/22 10/10/22 atorvastatin 10 mg tablet 20 mg PO 10/10/22 10/10/22 erenumab-aooe 70 mg/mL 70 mg subcut MONTHLY 10/10/22 10/10/22 subcutaneous auto-injector (Aimovig Autoinjector) ergocalciferol (vitamin D2) 1,250 1,250 mcg PO WEEKLY 10/10/22 10/10/22 mcg (50,000 unit) capsule gabapentin 300 mg capsule 300 mg PO BID 10/10/22 10/10/22 hydroxyzine HCl 50 mg tablet 50 mg PO TID 10/10/22 10/10/22 losartan 100 mg tablet 100 mg PO DAILY 10/10/22 10/10/22 meloxicam 15 mg tablet 15 mg PO DAILY 10/10/22 10/10/22 propranolol 20 mg tablet 20 mg PO TID 10/10/22 10/10/22 sertraline 100 mg tablet 150 mg PO DAILY 10/10/22 10/10/22 trazodone 150 mg tablet 150 mg PO HS 10/10/22 10/10/22 Allergies Allergy/AdvReac Type Severity Reaction Status Date / Time No Known Allergies Allergy Verified 10/10/22 05:16 Review of Systems Review of Systems: All systems as dictated in [facility] Social History Social History Smoking packs per day: 0.2 Smoking cigarettes per day: 4.0 Smoking status: Current every day smoker Tobacco type: cigarettes Second hand tobacco smoke exposure: Yes Smoking end date: 05/15/94 Alcohol intake: former Drinks per week: 70 Substance use: never Lack of Transportation: No Lack of Food: Never True Current Housing: I Have Housing Concerned About Future Housing: No Difficulty Paying Gas/Electric Bills: No Difficulty Paying for Meds: No Currently Unemployed: No Education: High School Diploma/GED Difficulty w/ Childcare or Family Care: No Spiritual care concerns: No Exam Narrative: GENERAL: Well-appearing, well-nourished, and in no acute distress. HEAD: Normocephalic, atraumatic. EYES: PERRLA and EOMI. ENT: Nares clear, no rhinorrhea or epistaxis. Mucous membranes moist. Oropharynx without tonsillar hypertrophy exudate or other lesions. NECK: Supple. No adenopathy or masses. CHEST: No respiratory distress. Clear to auscultation. No wheezes rales or rhonchi HEART: Regular rate and rhythm. No murmur heard. Normal peripheral pulses. ABDOMEN: Mild tenderness to the flanks. Soft, nontender, nondistended, normal active bowel sounds. MSK: Normal range of motion. No edema. Mild left lumbar paraspinal tenderness. No midline spinal tenderness. SKIN: Warm, dry, no rash. NEURO: Alert and oriented x4. No focal deficits. 5/5 strength grossly throughout the extremities. Subjective altered sensation of the bilateral feet. No saddle anesthesia. PSYCH: Normal mood and affect. Course Course Emergency Course: Re-evaluation 2129: Patient feeling better. Vital Signs Vital signs: Vital Signs Temperature 97.7 F 04/14/23 16:15 Pulse Rate 88 04/14/23 16:15 Respiratory Rate 18 04/14/23 16:15 Blood Pressure 163/92 H 04/14/23 16:15 Pulse Oximetry 100 04/14/23 16:15 O
[2023-04-14] MEDS: ONDANSETRON INJ 4 MG/2 ML VIAL IV PUSH (20:02)
[2023-04-14] MEDS: MORPHINE SULFATE (*CRX) 4 MG/ML INJ IV PUSH (20:03)
[2023-04-14 20:07] LABS: Basophils Absolute Auto 0.1 K/mm3 (0.0-0.1); Basophils Percent Auto 0.4 % (0.2-1.2); Eosinophils Absolute Auto 0.2 K/mm3 (0-0.3); Eosinophils Percent Auto 1.7 % (0-4.4); Hemoglobin 14.8 g/dL (12.0-15.0); Immature Granulocyte Absolute 0.05 K/mm3 (0.00-0.031); Immature Granulocyte Percent A 0.4 % (0-0.5); Lymphocytes Absolute Auto 3.88 K/mm3 (0.9-3.2); Lymphocytes Percent Auto 33.8 % (18.3-44.2); Mean Corpuscular HGB Conc 33.6 g/dl (32-36); Mean Corpuscular Hemoglobin 31.8 pg (26-34); Mean Corpuscular Volume 94.4 fl (80-100); Mean Platelet Volume 10.4 fl (7.4-10.4); Monocytes Absolute Auto 0.8 K/mm3 (0.1-0.6); Monocytes Percent Auto 6.9 % (2.6-8.5); Neutrophils Absolute Auto 6.5 K/mm3 (1.3-6.7); Neutrophils Percent Auto 56.8 % (45.5-73.1); Platelet Count Result 251 k/mm3 (150-375); Red Blood Count 4.66 M/mm3 (4.2-5.4); Red Cell Distribution Width 14.9 % (11.5-14.5); White Blood Count 11.5 K/mm3 (4.5-10.0)
[2023-04-14 20:22] LABS: Alanine Aminotransferase 14 U/L (6-35); Albumin Level 4.4 g/dL (3.5-5.1); Alkaline Phosphatase 54 U/L (38-126); Anion Gap 11 mmol/L (8-16); Aspartate Amino Transferase 27 U/L (14-36); Bilirubin,Total 0.7 mg/dL (0.2-1.3); Blood Urea Nitrogen 10 mg/dL (7-17); Calcium 8.9 mg/dL (8.4-10.2); Carbon Dioxide 23 mmol/L (22-30); Chloride 104 mmol/L (98-107); Estimated CRCL calculation 105 ml/min; Estimated Glomerular Filt Rate > 60; Glucose 90 mg/dL (65-110); Potassium 3.9 mmol/L (3.4-5.0); Sodium 138 mmol/L (137-145)
[2023-04-14 21:02] LABS: Appearance Urine Cloudy (Clear); Bacteria Urine 1+ /hpf; Bilirubin Urine Negative (Negative); Blood Urine 1+ (Negative); Color Urine Yellow (Yellow); Glucose Urine UA Negative (Negative); Ketones Urine Negative (Negative); Leukocyte Esterase Ur Trace LEU/UL (Negative); Nitrate Urine Negative (Negative); Non Pathogenic Casts 0-2; Protein Urine Negative (Negative); Squamous Epithelial Cell Urine Moderate /hpf (Few); WBC Urine 0-5 /hpf; pH Urine 6.5 (5.0-9.0)
[2023-04-14 21:06] LABS: Add Urine Microscopic? YES; Specific Grav Ur 1.045 (1.001-1.035)
[2023-04-14 22:00] VITALS: BP 123/87; PULSE 80; RESP 14; O2SAT 97
[2023-04-14] MEDS: CEPHALEXIN 500 MG CAPSULE PO (22:08)
== END 2023-04-14 22:00 | disposition home or self-care (01) ==
PROVIDERS: Emergency Provider Physician Assistant; PCP Physician Assistant
DX: N39.0 Urinary tract infection, site not specified (principal); M54.50 Low back pain, unspecified; G89.29 Other chronic pain; I10 Essential (primary) hypertension; Z87.891 Personal history of nicotine dependence
CPT/HCPCS: 36415; 72132; 74177; 80053; 81001; 85025; 96374; 96375; 99284; A9270; J2270; J2405; Q9967

== ENCOUNTER 2024-07-10 11:20 | Emergency (ER) | payer MEDICARE, MEDICAID, SELFPAY ==
--- NOTE | 2024-07-10 11:23 | ED.SKABFB ---
HPI - Skin/Abscess/Foreign Bdy General Chief complaint: Skin/Abscess/Foreign Body Stated complaint: rash on body Time Seen by Provider: 07/10/24 11:23 Source: patient Mode of arrival: ambulatory Limitations: no limitations History of Present Illness HPI narrative: Raysa is a 49-year-old female patient presenting to the clinic today with complaints of a rash on her body x8 days. She reports the rash is red raised itchy and is spreading. States the only change she had was she stayed in [facility] little over a week ago and ate at a [employer] restaurant. She denies any shortness of breath, difficulty swallowing, difficulty breathing, tongue swelling, or chest pain. Related Data Home Medications ?Medication ?Instructions ?Recorded ?Confirmed ?Last Taken ?Type amlodipine 10 mg tablet 10 mg PO DAILY 10/10/22 07/10/24 Unknown History atorvastatin 10 mg tablet 20 mg PO HS 10/10/22 07/10/24 Unknown History erenumab-aooe 70 mg/mL 70 mg subcut MONTHLY 10/10/22 07/10/24 Unknown History subcutaneous auto-injector (Aimovig Autoinjector) ergocalciferol (vitamin D2) 1,250 1,250 mcg PO WEEKLY 10/10/22 07/10/24 10/03/22 History mcg (50,000 unit) capsule gabapentin 300 mg capsule 300 mg PO BID 10/10/22 07/10/24 Unknown History hydroxyzine HCl 50 mg tablet 50 mg PO TID 10/10/22 07/10/24 Unknown History losartan 100 mg tablet 100 mg PO DAILY 10/10/22 07/10/24 Unknown History meloxicam 15 mg tablet 15 mg PO DAILY 10/10/22 07/10/24 Unknown History propranolol 20 mg tablet 20 mg PO TID 10/10/22 07/10/24 Unknown History sertraline 100 mg tablet 150 mg PO DAILY 10/10/22 07/10/24 Unknown History trazodone 150 mg tablet 150 mg PO HS 10/10/22 07/10/24 Unknown History Allergies Allergy/AdvReac Type Severity Reaction Status Date / Time No Known Allergies Allergy Verified 07/10/24 11:21 Review of Systems Review of Systems: Pertinent positives per HPI. Patient denies any fever, chills, headache, visual changes, dizziness, cough, shortness of breath, chest pain, palpitations, nausea, vomiting, diarrhea, constipation, abdominal pain, or any urinary issues. PMFSH Social History Social History Smoking packs per day: 0.2 Smoking cigarettes per day: 4.0 Smoking status: Current every day smoker Tobacco type: cigarettes Second hand tobacco smoke exposure: Yes Smoking end date: 05/15/94 Alcohol intake: former Drinks per week: 70 Substance use: never Lack of Transportation: No Lack of Food: Never True Current Housing: I Have Housing Concerned About Future Housing: No Difficulty Paying Gas/Electric Bills: No Difficulty Paying for Meds: No Currently Unemployed: No Education: High School Diploma/GED Difficulty w/ Childcare or Family Care: No Spiritual care concerns: No Comments At the time of my signature, I reviewed and agree with the nursing past medical, surgical, social, and family history. There is no relevant family history pertinent to the patient complaint. Exam Narrative: General: Well-developed, well nourished, in no apparent distress Head: Normocephalic, atraumatic Eyes: Pupils equally round and reactive to light bilaterally, EOM intact, sclera and conjunctive clear, no discharge, lids normal Ears: TMs intact and clear, ear canals clear, no drainage, grossly hearing normal. Nose: Nares patent, no discharge, no inflammation, no sinus tenderness. Mouth: Oropharynx without lesions or masses, good dentition, MMM. Neck: Supple, trachea midline, no enlargement of anterior or posterior cervical nodes, no thyroid masses or goiter palpable. Cardio: Regular rate and rhythm, s1 and s2 normal, no murmur appreciated. Resp: Clear to auscultation bilaterally anteriorly and posteriorly, no rhonchi, rales, wheezing or rubs Integumentary: [place], warm, and dry, red, raised, hive-like rash to arms, chest, abdomen, back, and legs Course Course Emergency Course: Portions of this record may have been created with voice recognition software. Level of Care: Express Care Visit Vital Signs Vital signs: Vital Signs Temperature 36.3 C L 07/10/24 11:36 Pulse Rate 74 07/10/24 11:36 Respiratory Rate 16 07/10/24 11:36 Blood Pressure 137/56 L 07/10/24 11:36 Pulse Oximetry 98 07/10/24 11:36 Oxygen Delivery Room Air 07/10/24 11:36 Temperature 36.3 C L 07/10/24 11:36 Pulse Rate 74 07/10/24 11:36 Respiratory Rate 16 07/10/24 11:36 Blood Pressure 137/56 L 07/10/24 11:36 Pulse Oximetry 98 07/10/24 11:36 Oxygen Delivery Room Air 07/10/24 11:36 Vital signs reviewed MDM - Skin/Abscess/Foreign Bdy MDM Narrative Medical decision making narrative: At the time of visit patient is resting comfortably on the exam table. Patient appears to be nontoxic. Medications: Decadron 10 mg IM, Benadryl 50 mg p.o., and Pepcid 40 mg p.o. given in the clinic today Plan: I suspect patient has acute hives. Prescription for prednisone and Pepcid was sent to the pharmacy. Supportive measures were discussed with the patient and they voiced understanding discharge instructions and agrees to treatment plan. Return precautions reviewed Differential Diagnosis Differential diagnosis: Likely abscess of skin or subcutaneous tissue, viral exanthem, dermatophytosis, urticaria, herpes zoster, allergic reaction to drug, cellulitis, eczema, insect bites, impetigo, contact dermatitis and other (COVID) Discharge Plan Discharge Clinical Impression: Acute urticaria Patient Disposition: Home, Self-Care Condition: Stable Instructions: Antibiotic Form, Urticaria (ED) Additional Instructions: Decadron 10mg IM given in the clinic today Benadryl 50mg given in the clinic today Famotidine 40mg given in the clinic today Take tapered prednisone as directed- start 07/11/24 May take OTC antihistamine- Zyrtec or Claritin daily Avoid hot showers Avoid scratching as this can cause a secondary infection May take Benadryl 25-50mg every 6 hours as needed for itching. Follow up with your PCP in 3-5 days if symptoms persist or sooner if they worsen Go to the Emergency Room if symptoms worsen- fever, rash spreading with treatment, shortness of breath, tongue swelling, drooling, or chest pain Patient Language: Gambian Prescriptions: New famotidine [Pepcid] 40 mg tablet 40 mg PO DAILY 10 Days Qty: 10 0RF prednisone 10 mg tablet 10 mg PO DAILY Qty: 30 0RF Rx Instructions: 60mg po daily on day 1, 40mg po daily on days 2-4, 30mg po daily on days 5-6, 20mg po daily on days 7-8, 10mg po daily on days 9-10 No Action atorvastatin 10 mg tablet 20 mg PO HS meloxicam 15 mg tablet 15 mg PO DAILY sertraline 100 mg tablet 150 mg PO DAILY hydroxyzine HCl 50 mg tablet 50 mg PO TID amlodipine 10 mg tablet 10 mg PO DAILY trazodone 150 mg tablet 150 mg PO HS gabapentin 300 mg capsule 300 mg PO BID ergocalciferol (vitamin D2) 1,250 mcg (50,000 unit) capsule 1,250 mcg PO WEEKLY propranolol 20 mg tablet 20 mg PO TID losartan 100 mg tablet 100 mg PO DAILY Aimovig Autoinjector 70 mg/mL auto-injector 70 mg SUBCUT MONTHLY furosemide 20 mg Tablet 20 mg PO DAILY 10 Days Qty: 10 0RF lidocaine 4 % adhesive patch,medicated 1 patch topical BID PRN (Reason: pain) Qty: 10 0RF Follow-up/Referrals: Major,KADEEM Winchester [Primary Care Provider] - Time of Disposition: 11:43 Quality NIHSS Nursing Documentation ED NIHSS nursing documentation: reviewed/agree
[2024-07-10 11:36] VITALS: BP 137/56; PULSE 74; RESP 16; TEMP 36.3; O2SAT 98
[2024-07-10] MEDS: diphenhydrAMINE HCl CAP 25 MG CAPSULE 50 MG PO (11:48)
[2024-07-10] MEDS: dexAMETHasone SOD PHOS INJ 10 MG/ML 1 ML VIAL IM (11:49)
[2024-07-10] MEDS: FAMOTIDINE 20 MG TABLET 40 MG PO (11:49)
== END 2024-07-10 12:05 | disposition home or self-care (01) ==
PROVIDERS: Emergency Provider Nurse Practitioner Family; PCP Physician Assistant
DX: L50.9 Urticaria, unspecified (principal); Z87.891 Personal history of nicotine dependence; I10 Essential (primary) hypertension; E78.00 Pure hypercholesterolemia, unspecified; F41.9 Anxiety disorder, unspecified; F32.A Depression, unspecified
CPT/HCPCS: 96372; 99213; A9270; G0463; J1100